=== PATIENT | male | born 1970 | race Native Hawaiian/Other Pacific Islander ===

== ENCOUNTER 2016-11-20 08:21 | Outpatient (CLI) | payer OTHER ==
[~2016-11-20 08:21] MED LIST: ATEN25TA21 PO; EQ ASPIRIN325 M1 PO
[2016-11-20] MEDS ORDERED: LORA1TAB17 PO (08:58)
[2016-11-20] MEDS ORDERED: FERROUS SULF325 M1 OR (08:59)
== END 2016-11-20 08:39 | disposition short-term general hospital (02) ==
LOC: AMB 08:21
DX: R07.89 Other chest pain (principal); R06.02 Shortness of breath
CPT/HCPCS: A0425; A0427

== ENCOUNTER 2016-11-20 08:44 | Inpatient (IN) | payer OTHER ==
[~2016-11-20] VITALS: Ht 182.9 cm; Wt 86.2 kg
[2016-11-20] VITALS (10 sets, daily range): BP systolic 95–132; BP diastolic 59–83; TEMP 98.2; Ht 182.9 cm; Wt 86.2 kg
[2016-11-20] MEDS ORDERED: LORA1TAB17 PO (08:58)
[2016-11-20] MEDS ORDERED: FERROUS SULF325 M1 OR (08:59)
[2016-11-20 11:14] LABS: PLATELET COUNT 311 K/uL (142-355)
[2016-11-20 11:15] LABS: POTASSIUM 4.3 mmol/L (3.6-5.2); SODIUM 142 mmol/L (136-145)
[2016-11-20 11:30] LABS: PARTIAL THROMBOPLASTIN TIME 27.1 SECONDS (24.5-33.6)
[2016-11-21 08:00] VITALS: BP 125/77; TEMP 98.2
[2016-11-21 08:24] LABS: PLATELET COUNT 257 K/uL (142-355)
[2016-11-21 08:50] LABS: POTASSIUM 3.8 mmol/L (3.6-5.2); SODIUM 141 mmol/L (136-145)
[2016-11-21 10:00] VITALS: BP 128/80
[2016-11-21 12:00] VITALS: BP 133/77
[2016-11-21 16:00] VITALS: BP 140/89; TEMP 97.8
[2016-11-22 01:00] VITALS: BP 120/53; TEMP 98.5
[2016-11-22 05:40] LABS: POTASSIUM 3.5 mmol/L (3.6-5.2); SODIUM 142 mmol/L (136-145)
[2016-11-22 06:12] LABS: PLATELET COUNT 232 K/uL (142-355)
[2016-11-22 08:00] VITALS: BP 115/68; TEMP 97.9
[2016-11-22 12:00] VITALS: BP 99/61; TEMP 98
[2016-11-22 16:00] VITALS: BP 117/65; TEMP 97.3
[2016-11-22 20:00] VITALS: BP 102/61; TEMP 98
[2016-11-23] VITALS: BP 97/68; TEMP 97.9
[2016-11-23 04:00] VITALS: BP 109/63; TEMP 97.7
[2016-11-23 05:32] LABS: PLATELET COUNT 236 K/uL (142-355)
[2016-11-23 06:00] LABS: POTASSIUM 3.4 mmol/L (3.6-5.2); SODIUM 140 mmol/L (136-145)
[2016-11-23 08:00] VITALS: BP 103/65; TEMP 97.8
[2016-11-23 11:57] VITALS: BP 130/75; TEMP 97.4
[2016-11-23 16:00] VITALS: BP 108/62; TEMP 98.6
[2016-11-23 20:00] VITALS: BP 94/60; TEMP 98.2
[2016-11-24] VITALS: BP 93/61; TEMP 97.8
[2016-11-24 04:00] VITALS: BP 93/47; TEMP 97.7
[2016-11-24 04:26] LABS: PLATELET COUNT 243 K/uL (142-355)
[2016-11-24 04:47] LABS: POTASSIUM 3.7 mmol/L (3.6-5.2); SODIUM 137 mmol/L (136-145)
[2016-11-24 08:00] VITALS: BP 105/61; TEMP 97.9
== END 2016-11-24 16:47 | disposition home or self-care (01) | DRG 313 ==
LOC: ED 08:44 → MED/SURG 11:00 → ICU 11:00 → MED/SURG 11-21 14:10 → ICU 11-21 14:10 → MED/SURG 11-24 16:47
PROVIDERS: Specialist; ADMIT Emergency Medicine
DX: R07.89 Other chest pain (principal); L03.116 Cellulitis of left lower limb; L03.115 Cellulitis of right lower limb; I45.6 Pre-excitation syndrome; R23.8 Other skin changes; D64.89 Other specified anemias
CPT/HCPCS: 36415; 80053; 82550; 82607; 82728; 82747; 83540; 83550; 83735; 83880; 84466; 84484; 85027; 85044; 85379; 85610; 85730; 86318; 93005; 93306; 96360; 96372; 99284; J1650

== ENCOUNTER 2017-02-21 11:36 | Emergency (ER) | payer OTHER ==
[~2017-02-21] VITALS: Ht 182.9 cm; Wt 86.2 kg
[~2017-02-21 11:36] MED LIST changes: +FERROUS SULF325 M1 OR; +LORA1TAB17 PO
[2017-02-21 11:39] VITALS: BP 121/76; TEMP 98.6
== END 2017-02-21 12:17 | disposition home or self-care (01) ==
LOC: ED 11:36
DX: R68.84 Jaw pain (principal)
CPT/HCPCS: 99281

== ENCOUNTER 2017-11-27 21:24 | Outpatient (CLI) | payer OTHER | END 2017-11-27 21:27 | disposition short-term general hospital (02) | LOC: AMB 21:24 | DX: F10.129 Alcohol abuse with intoxication, unspecified (principal) | CPT/HCPCS: A0425; A0427 ==

== ENCOUNTER 2017-11-27 21:37 | Emergency (ER) | payer OTHER ==
[~2017-11-27] VITALS: Ht 182.9 cm; Wt 93.0 kg
[2017-11-27 21:34] VITALS: TEMP 99.3
[2017-11-27 22:47] LABS: PLATELET COUNT 251 K/uL (142-355)
[2017-11-27 23:02] LABS: POTASSIUM 3.7 mmol/L (3.6-5.2)
[2017-11-27 23:58] VITALS: BP 132/85
== END 2017-11-28 01:00 | disposition home or self-care (01) ==
LOC: ED 21:37
DX: K72.90 Hepatic failure, unspecified without coma (principal); F10.10 Alcohol abuse, uncomplicated; F15.10 Other stimulant abuse, uncomplicated; R00.0 Tachycardia, unspecified
CPT/HCPCS: 80053; 80307; 81000; 82550; 83735; 84484; 85027; 93005; 96360; 99284

== ENCOUNTER 2018-07-20 15:13 | Observation (INO) | payer OTHER ==
[~2018-07-20] VITALS: Ht 182.9 cm; Wt 98.1 kg
[2018-07-20 15:20] VITALS: BP 148/72; TEMP 99
[2018-07-20 15:40] VITALS: BP 123/75; TEMP 98
[2018-07-20 15:53] LABS: PLATELET COUNT 310 K/uL (142-355)
[2018-07-20 15:58] LABS: POTASSIUM 4.6 mmol/L (3.6-5.2); SODIUM 133 mmol/L (136-145)
[2018-07-20 21:23] VITALS: BP 150/80; TEMP 98.4
[2018-07-21] VITALS: BP 140/79; TEMP 98.4
[2018-07-21 01:14] VITALS: BP 150/81; TEMP 98.4; Ht 182.9 cm; Wt 98.1 kg
[2018-07-21 04:00] VITALS: BP 131/75; TEMP 98.5
[2018-07-21 05:56] LABS: PLATELET COUNT 274 K/uL (142-355)
[2018-07-21 06:20] LABS: POTASSIUM 4.2 mmol/L (3.6-5.2); SODIUM 132 mmol/L (136-145)
[2018-07-21 08:22] VITALS: BP 136/80; TEMP 98.2
[2018-07-21] MEDS ORDERED: OMEPRAZOLE DR20 MG PO (12:27)
[2018-07-21 12:30] VITALS: BP 120/76; TEMP 98.4
[2018-07-21] MEDS ORDERED: ZOFRAN ODT4 MG PO (13:04)
--- NOTE | 2018-07-21 17:02 | NUR ---
1645 DISCHARGE INSTRUCTONS GIVEN AND EXPLAINED TO PT. PT VERBALIZED UNDERSTANDING. DR SHELLY CRAWFORD WILL CALL PT WITH APPT DATE AND TIME 1650 PT LEFT WITH FAMILY VIA WC. NO ACUTE DISTRESS NOTED
== END 2018-07-21 16:50 | disposition home or self-care (01) ==
LOC: ED 15:13 → MED/SURG 19:30
PROVIDERS: ADMIT Emergency Medicine
DX: I45.6 Pre-excitation syndrome (principal); F41.8 Other specified anxiety disorders; K21.9 Gastro-esophageal reflux disease without esophagitis; R07.89 Other chest pain
CPT/HCPCS: 36415; 80053; 82550; 83735; 83880; 84484; 85027; 85379; 85610; 85730; 93005; 94760; 96365; 96375; 96376; 99220; 99284; G0378; J1940; J2060; J2405

== ENCOUNTER 2019-05-25 11:25 | Outpatient (CLI) | payer OTHER ==
[~2019-05-25 11:25] MED LIST changes: +OMEPRAZOLE DR20 MG PO; +ZOFRAN ODT4 MG PO
== END 2019-05-25 11:35 | disposition short-term general hospital (02) ==
LOC: AMB 11:25
DX: R41.82 Altered mental status, unspecified (principal)
CPT/HCPCS: A0425; A0427

== ENCOUNTER 2019-05-25 11:36 | Emergency (ER) | payer OTHER ==
[~2019-05-25] VITALS: Ht 182.9 cm; Wt 99.8 kg
[2019-05-25 11:42] VITALS: TEMP 97.5
[2019-05-25 12:25] LABS: PLATELET COUNT 271 K/uL (142-355)
[2019-05-25 12:40] LABS: POTASSIUM 3.7 mmol/L (3.6-5.2)
[2019-05-25 16:53] VITALS: BP 130/80
== END 2019-05-25 16:54 | disposition home or self-care (01) ==
LOC: ED 11:36
PROVIDERS: Student in an Organized Health Care Education/Training Program
DX: F19.10 Other psychoactive substance abuse, uncomplicated (principal); R41.82 Altered mental status, unspecified; T42.4X5A Adverse effect of benzodiazepines, initial encounter
CPT/HCPCS: 80053; 80307; 80320; 80329; 81000; 82140; 84484; 85027; 93005; 96360; 99284

== ENCOUNTER 2019-11-04 14:05 | Emergency (ER) | payer OTHER ==
[~2019-11-04] VITALS: Ht 185.4 cm; Wt 83.9 kg
[2019-11-04 14:50] VITALS: BP 131/85; TEMP 98.2
[2019-11-04 14:50] LABS: PLATELET COUNT 327 K/uL (142-355)
[2019-11-04 14:56] LABS: POTASSIUM 3.5 mmol/L (3.6-5.2)
== END 2019-11-04 14:52 | disposition home or self-care (01) ==
LOC: ED 14:05
DX: F13.239 Sedative, hypnotic or anxiolytic dependence with withdrawal, unspecified (principal); F19.10 Other psychoactive substance abuse, uncomplicated; Z72.89 Other problems related to lifestyle
CPT/HCPCS: 80053; 80307; 80320; 81000; 85027; 93005; 99283

== ENCOUNTER 2019-11-05 09:14 | Emergency (ER) | payer OTHER ==
[~2019-11-05] VITALS: Ht 182.9 cm; Wt 81.6 kg
[2019-11-05 09:25] VITALS: TEMP 99
[2019-11-05 10:20] VITALS: BP 128/69
== END 2019-11-05 10:20 | disposition home or self-care (01) ==
LOC: ED 09:14
DX: F19.10 Other psychoactive substance abuse, uncomplicated (principal)
CPT/HCPCS: 96372; 99283; J2060; J2405